=== PATIENT | female | born 1980 | race Caucasian/White ===

== ENCOUNTER 2017-12-10 13:13 | Outpatient (CLI) | payer BC ==
[~2017-12-10] VITALS: Ht 160 cm; Wt 87.5 kg
[~2017-12-10 13:13] MED LIST: ACHD5005 PO; BCP; DCS100C PO; FRS325T PO; IBP600T1 PO; Ibuprofen PO; ONDN4T PO; PREN1TAB39 PO
[2017-12-10] MEDS ORDERED: DESV50TA PO (13:41)
[2017-12-10] MEDS ORDERED: LOSA25TA2 PO (13:41)
[2017-12-16] MEDS ORDERED: PHEN37.53 PO (15:56)
== END 2017-12-10 13:43 ==
LOC: PREOP 13:13
PROVIDERS: ATTEND Surgery
DX: Z01.818 Encounter for other preprocedural examination (principal); R10.13 Epigastric pain

== ENCOUNTER 2017-12-16 11:24 | Day surgery (SDC) | payer BC ==
[~2017-12-16] VITALS: Ht 160 cm; Wt 87.5 kg
[~2017-12-16 11:24] MED LIST changes: +DESV50TA PO; +LOSA25TA2 PO
--- OUTSIDE RECORDS SUMMARY | 2017-12-16 11:28 | XMS REPORT | Continuity of Care Document ---
Author Author [facility] Organization [facility] Address Unknown Phone Unavailable Allergies Active Description Code Type Severity Reaction Onset Reported/Identified Relationship to Patient Clinical Status Yes milk [id number] Drug Allergy Unknown N/A 03/14/2006 Yes promethazine [id number] Drug Allergy Unknown N/A 01/11/2010 Medications There is no data. Problems Date Dx Coded Attending Type Code Diagnosis Diagnosed By 03/02/2014 EVIN WALLACE DO Ot 660.41 SHOULDER DYSTOCIA-DELIV 03/02/2014 EVIN WALLACE DO Ot V06.1 [id number], COMBINED [ 03/02/2014 EVIN WALLACE DO Ot V27.0 DELIVER-SINGLE LIVEBORN 12/10/2017 HAILEY WILKINS MD Ot R10.13 EPIGASTRIC PAIN 12/10/2017 HAILEY WILKINS MD Ot Z01.818 ENCOUNTER FOR OTHER PREPROCEDURAL EXAMIN 12/11/2017 HAILEY WILKINS MD, Ot R10.13 EPIGASTRIC PAIN 12/11/2017 HAILEY WILKINS MD, Ot Z01.818 ENCOUNTER FOR OTHER PREPROCEDURAL EXAMIN Procedures Code Description Performed By Performed On 73.6 EPISIOTOMY 02/28/2014 Results There is no data. Encounters ACCT No. Visit Date/Time Discharge Status Pt. Type Provider Facility Loc./Unit Complaint [id number] 12/10/2017 13:13:00 12/10/2017 13:43:00 DIS Outpatient HAILEY WILKINS MD [facility] PREOP COLONOSCOPY/EGD [id number] 02/28/2014 06:49:00 03/02/2014 12:40:00 DIS Inpatient EVIN WALLACE DO [facility] LDRP INDCUTION [id number] 03/29/2013 18:41:00 03/29/2013 23:59:59 CLS Outpatient [id number] 12/16/2017 13:15:00 RUBEN WILKINS MD, HAI[facility] ENDO ABD PAIN/EPIGASTRIC PAIN [id number] 01/07/2016 10:02:00 Document Registration
--- NOTE | 2017-12-16 11:40 | Conscious Sedation/ASA ---
Conscious Sedation Pre-Proced Time Reviewed: 11:00 ASA Class: 2 Airway Mallampati Classification: ([place] appropriate class) I. II. III, IV Lungs Heart ASA score ASA 1: a normal healthy patient ASA 2: a patient with a mild systemic disease (mid diabetes, controlled hypertension, obesity ASA 3: a patient with a severe systemic disease that limits activity (angina , COPD, prior Myocardial infarction) ASA 4: a patient with an incapacitating disease that is a constant threat to life (CHF, renal failure) ASA 5: a moribund patient not expected to survive 24 hrs. (ruptured aneurysm) ASA 6: a declared brain patient whose organs are being harvested. For emergent operations, add the letter E after the classification Grade 2 Sedation Plan: Analgesia, Amnesia, Plan communicated to team members, Discussed options with patient/fam, Discussed risks with patient/fam Note The patient is an appropriate candidate to undergo the planned procedure, sedation, and anesthesia. The patient immediately re-assessed prior to indication. HAILEY WILKINS MD December 16, 2017 11:40 am
[2017-12-16] MEDS ORDERED: NS IV 500 ML 500 ML IV PRN (11:41)
--- NOTE | 2017-12-16 11:41 | Progress Note-Pre Operative ---
Pre-Operative Progress Note H&P Reviewed The H&P was reviewed, patient examined and no changes noted. Date Seen by Provider: December 16, 2017 Time Seen by Provider: 11:00 Date H&P Reviewed: December 16, 2017 Time H&P Reviewed: 11:00 Pre-Operative Diagnosis: GERD, change bowel habits HAILEY WILKINS MD December 16, 2017 11:41 am
[2017-12-16] MEDS ORDERED: morphine INJ 10 MG/ML 1ML (SYR OR VIAL) IV PRN (11:45)
[2017-12-16] MEDS ORDERED: NS IV 500 ML 500 ML ONE (11:45)
[2017-12-16] MEDS ORDERED: HYDROcodone/APAP 5 MG/325 MG (LORTAB) TAB PO PRN (11:45)
[2017-12-16] MEDS ORDERED: ONDANSETRON 4 MG/2 ML (SDV) Z0FRAN IV PRN (11:45)
[2017-12-16] MEDS ORDERED: ACETAMINOPHEN 325 MG TABLET/CAPLET (TYLENOL) PO PRN (11:45)
[2017-12-16 12:16] VITALS: BP 140/81
[2017-12-16] MEDS ORDERED: HURRICAINE EXT TUBE (BENZOCAINE) XX ONE (12:45)
[2017-12-16] MEDS ORDERED: fentaNYL INJECTION 100 MCG/2 ML AMP ONE ×3 (14:41)
[2017-12-16] MEDS ORDERED: LIDOCAINE JELLY 2% (XYLOCAINE) 5 ML TUBE ONE (14:41)
[2017-12-16] MEDS ORDERED: HURRICAINE EXT TUBE (BENZOCAINE) ONE (14:42)
[2017-12-16] MEDS ORDERED: MIDAZOLAM 2 MG/2 ML (VERSED) VIAL ONE ×5 (14:42)
[2017-12-16] MEDS: fentaNYL INJECTION 100 MCG/2 ML AMP IVP PRN ×4 (14:55→15:18)
[2017-12-16] MEDS: MIDAZOLAM 2 MG/2 ML (VERSED) VIAL IVP PRN ×5 (15:00→15:20)
[2017-12-16] MEDS ORDERED: LIDOCAINE JELLY 2% (XYLOCAINE) 30 ML TUBE TOP ONE (15:45)
--- NOTE | 2017-12-16 15:55 | Progress Note-Post Operative ---
Post-Operative Progess Note Surgeon (s)/Superintendent Of Schools (s) Surgeon HAILEY WILKINS MD Superintendent Of Schools: none Pre-Operative Diagnosis GERD, change bowel habits Post-Operative Diagnosis reflux esophagitis(class B), intact wrap and no recurrent HH, mild gastritis. chronic stage 1 ext and int hemorrhoids. Procedure & Operative Findings Date of Procedure 12/16/17 Procedure Performed/Findings EGD with bx. Colonoscopy. Anesthesia Type CS Estimated Blood Loss Estimated blood loss (mL): minimal Specimens/Packing Specimens Removed GE jxn, antrum HAILEY WILKINS MD December 16, 2017 3:55 pm
[2017-12-16] MEDS ORDERED: PHEN37.53 PO (15:56)
--- NOTE | 2017-12-16 15:57 | Discharge Inst-Surgical ---
D/C Lap Instructions-KIDO New, Converted, or Re-Newed RX: RX on Chart Follow Up Appt in 4 weeks Activity as tolerated High Fiber Diet 25g or more per day Avoid Alcohol, Caffeine, Spicy [place] and Acid foods. Drink 64 fluid oz or more of fluids per day. Symptoms to Report: Fever over 101 degree F, Nausea/Vomiting If any problems/questions: Contact your physician or go to Emergency Room HAILEY WILKINS MD December 16, 2017 3:57 pm
[2017-12-16 16:10] VITALS: BP 134/79
[2017-12-16 16:20] VITALS: BP 134/79
--- NOTE | 2017-12-17 03:44 | OPERATIVE REPORT ---
DATE OF SERVICE: 12/16/2017 ATTENDING DIRECTOR CORPORATE COMMUNICATIONS: NORAH Villegas. PREOPERATIVE DIAGNOSES: Recurrent gastroesophageal reflux disease, crampy lower abdominal pain. POSTOPERATIVE DIAGNOSES: Reflux esophagitis class B, no recurrent hiatal hernia, mild gastritis, colon and rectum were normal. PROCEDURES: EGD with biopsy and colonoscopy. SURGEON: Hailey Wilkins MD. ANESTHESIA: Conscious sedation. ESTIMATED BLOOD LOSS: Minimal. FINDINGS: 1. EGD: Reflux esophagitis class B no recurrent hiatal hernia, mild gastritis. Pylorus and duodenum appeared normal with no distal obstructions. 2. Colonoscopy: Mild chronic stage I external and internal hemorrhoids. The remainder of the rectum and colon were normal. DISPOSITION: The patient tolerated the procedure well. INDICATIONS: The patient is a 37-year-old female, who has had gastrointestinal issues since childhood with intermittent episodes of constipation and diarrhea and lower quadrant abdominal pain. We felt that this was most likely secondary to some form of irritable bowel syndrome. We did recommend conservative management with high fiber diet and states that this has made her symptoms more tolerable. She also does report a history of endometriosis as well as recurrent ovarian cysts in the past which have caused chronic lower abdominal pain as well. She reports that she has had epigastric burning sensation as well as crampy pain and bloating after eating. She did have a significant reflux and a hiatal hernia and underwent a hiatal hernia repair and Rosa M fundoplication in 1999 in [place], [place]. She reports for the most part she does not drink any excessive amounts of caffeinated beverages, spicy, greasy and acidic foods. She reports that her symptoms have worsened over time and she has also struggled with weight loss in the past several years despite adequate diet and exercise. She does report a remote family history of colon cancer with her maternal grandmother having the disease and also her father having Hirschsprung disease; however, she does not report any symptoms consistent with Hirschsprung disease. DESCRIPTION OF PROCEDURE: The patient was brought to the endoscopy suite, laid in the left lateral decubitus position with head slightly elevated. After adequate IV pain and sedating medications and conscious sedation anesthesia, the mouthpiece was applied. The endoscope was placed in the mouth visualizing the pharynx and hypopharyngeal region. Vocal cords, epiglottis and vallecula identified and appeared to be normal. The endoscope was gently intubated in the esophageal opening and esophagus insufflated. Endoscope was then advanced to the first, second and third portions of the esophagus at the level of the GE junction, a reflux esophagitis class B identified. There were no ulcers or strictures identified in this region. A biopsy was taken with forceps with visualization good hemostasis. The endoscope was then easily advanced in the stomach and endoscope retroflexed visualizing an intact previous wrap and no recurrent hiatal hernia. There was a mild severity gastritis. No formal ulcerations, polyps or any neoplasms. A biopsy was taken of the stomach antrum with visualization of good hemostasis. The endoscope was then advanced through the pylorus and the first and second portions of the duodenum, which appeared normal and no distal obstructions. The endoscope was then slowly withdrawn while taking a second look and suctioning of residual air with no additional findings. The patient tolerated the procedure well. We will recommend continued necessary lifestyle and diet accommodation including small and more frequent meals, avoidance of eating at night as well as head elevation while lying supine. We will also proceed with the necessary modalities of weight loss which ever type works for her as long as she is consistent with that including high protein diet as well as regularly scheduled intense exercise regimen that encompasses at least 150 minutes a week. Under the same conscious sedation anesthesia, we then proceeded with colonoscopy portion of the procedure. A digital rectal examination was performed which revealed mild chronic stage I external and internal hemorrhoids, not actively edematous nor inflamed and no bleeding. Normal sphincter tone was felt and there were no palpable masses. The endoscope was then intubated to the anus and the rectum gently insufflated. The endoscope was then advanced to the valves of Hale of the rectum with no polyps or any neoplasms identified. The endoscope was then advanced through the sigmoid colon where no diverticulosis identified. The endoscope was then advanced through the remainder of the descending, transverse and ascending colon to the cecum. These segments were normal. There were no mucosal inflammatory changes or any polyps or any neoplasms identified. The endoscope was then slowly withdrawn while taking a second look and suctioning residual air with no additional findings. The patient tolerated the procedure well. We will continue with medical management with recommendation of a high fiber diet with at least 30 grams of fiber per day as well as at least 64 fluid ounces of water daily to promote soft stools on a daily basis. She does not need another colonoscopy until around age 51; however, sooner if any problems arise. Job ID: [id number] DocumentID: [id number] Dictated Date: 12/16/2017 15:37:55 Mortgage Loan Computation Clerk Date: 12/17/2017 03:43:57 Dictated By: HAILEY WILKINS MD
== END 2017-12-16 16:25 | disposition home or self-care (01) ==
LOC: ENDO 11:24
PROVIDERS: ATTEND Surgery
DX: K21.0 Gastro-esophageal reflux disease with esophagitis (principal); K29.60 Other gastritis without bleeding; Z80.0 Family history of malignant neoplasm of digestive organs
CPT/HCPCS: 88305; 88342

== ENCOUNTER 2018-03-01 11:00 | Outpatient (CLI) | payer BC ==
[~2018-03-01] VITALS: Ht 160 cm; Wt 87.5 kg
[~2018-03-01 11:00] MED LIST changes: +PHEN37.53 PO
[2018-03-01] MEDS ORDERED: [UNRECOGNIZED DRUG - CODE] PO (11:04)
[2018-03-01] MEDS ORDERED: LOSA50TA36 PO (11:04)
[2018-03-05] MEDS ORDERED: IBUP-844 PO (09:34)
[2018-03-05] MEDS ORDERED: ACHD5005 PO (09:34)
== END 2018-03-01 11:25 ==
LOC: PREOP 11:00
PROVIDERS: ATTEND Obstetrics & Gynecology
DX: Z01.818 Encounter for other preprocedural examination (principal)

== ENCOUNTER → 2018-07-20 | Outpatient (CLI) | payer BC ==
[~2018-07-20] VITALS: Ht 160 cm; Wt 87.5 kg
[~2018-07-20] MED LIST changes: +IBUP-844 PO; +LEUPROLIDE 11.25 MG IM SCH; +LOSA50TA7 PO; +[UNRECOGNIZED DRUG - CODE] PO
[2018-07-20 10:00] VITALS: BP 128/90
== END ==
LOC: SDC 09:51
PROVIDERS: ATTEND Obstetrics & Gynecology
DX: N80.9 Endometriosis, unspecified (principal)
CPT/HCPCS: 96372

== ENCOUNTER → 2018-10-19 | Outpatient (CLI) | payer BC ==
[~2018-10-19] VITALS: Ht 160 cm; Wt 87.5 kg
[~2018-10-19] MED LIST changes: +LOSA50TA63 PO; -LOSA50TA7 PO
[2018-10-19 13:35] VITALS: BP 123/68
--- NOTE | 2018-10-20 20:13 | Physician Query-Final Dx ---
CHAZ AHUMADA 10/20/18 2013: Clinic Account Progress/Dx Physician Query: Please give diagnosis Date of Service Oct 19, 2018 at 12:57 EVIN WALLACE DO 11/11/182141: Clinic Account Progress/Dx DIAGNOSIS: Diagnosis endometriosis CHAZ AHUMADA Oct 20, 2018 20:13 EVIN WALLACE DO Nov 11, 2018 21:42
== END ==
LOC: SDC 12:57
PROVIDERS: ATTEND Obstetrics & Gynecology
DX: N80.9 Endometriosis, unspecified (principal)
CPT/HCPCS: 96372

== ENCOUNTER → 2019-01-12 | Outpatient (CLI) | payer BC ==
[~2019-01-12] VITALS: Ht 160 cm; Wt 87.5 kg
[~2019-01-12] MED LIST changes: -LEUPROLIDE 11.25 MG IM SCH; +LEUPROLIDE IM ONE
[2019-01-12 12:19] VITALS: BP 108/66
== END ==
LOC: SDC 01-11 12:25
PROVIDERS: ATTEND Obstetrics & Gynecology
DX: N80.9 Endometriosis, unspecified (principal)
CPT/HCPCS: 96372

== ENCOUNTER → 2019-04-13 | Outpatient (CLI) | payer BC ==
[~2019-04-13] VITALS: Ht 160 cm; Wt 77.7 kg
[~2019-04-13] MED LIST changes: +PED IM SCH; +[UNRECOGNIZED DRUG - OTHER] IM SCH
[2019-04-13 13:35] VITALS: BP 118/77
--- NOTE | 2019-05-09 15:04 | Physician Query-Final Dx ---
Final Diagnosis Give Final Diagnosis Please give Final Diagnosis GILDA KEY May 09, 2019 15:04
== END | disposition home or self-care (01) ==
LOC: SDC 12:56
PROVIDERS: ATTEND Obstetrics & Gynecology
DX: N80.9 Endometriosis, unspecified (principal)
CPT/HCPCS: 96372

== ENCOUNTER → 2019-07-13 | Outpatient (CLI) | payer BC ==
[~2019-07-13] VITALS: Ht 160 cm; Wt 80.7 kg
[~2019-07-13] MED LIST changes: -PED IM SCH; -[UNRECOGNIZED DRUG - OTHER] IM SCH
[2019-07-13 14:25] VITALS: BP 125/80
[2019-07-13 14:46] VITALS: BP 125/80
== END ==
LOC: SDC 13:51
PROVIDERS: ATTEND Obstetrics & Gynecology
DX: Z01.89 Encounter for other specified special examinations (principal)
CPT/HCPCS: 96372

== ENCOUNTER → 2019-07-29 | Outpatient (CLI) | payer BC ==
[~2019-07-29] MED LIST changes: -LEUPROLIDE IM ONE
--- NOTE | 2019-07-29 08:31 | Diagnostic Imaging Report ---
PROCEDURE: US right lower extremity venous. TECHNIQUE: Multiple real-time grayscale images were obtained over the right lower extremity in various projections. Additional spectral analysis and color Doppler duplex images were also obtained. INDICATION: Right leg pain and swelling. There is no evidence of right lower extremity DVT. Right lower extremity deep venous system shows normal compressibility with normal response to augmentation and Valsalva. No fluid collection or mass is seen. IMPRESSION: No evidence of right lower extremity DVT. Dictated by: Dictated on workstation # [id number]
== END ==
LOC: RAD 07:45
PROVIDERS: ATTEND Nurse Practitioner Family
DX: M79.661 Pain in right lower leg (principal); M79.89 Other specified soft tissue disorders

== ENCOUNTER → 2019-08-09 | Outpatient (CLI) | payer BC ==
--- NOTE | 2019-08-09 14:36 | Diagnostic Imaging Report ---
INDICATION: Hypertension and calf pain. FINDINGS: Segmental pressures were obtained at the ankle and brachial arteries. The ankle-brachial index on the right is 1.22 and on the left 1.19. IMPRESSION: Normal bilateral ankle brachial indices. Dictated by: Dictated on workstation # [id number]
== END ==
LOC: RAD 08:40
PROVIDERS: ATTEND Nurse Practitioner Family
DX: I10 Essential (primary) hypertension (principal); M79.661 Pain in right lower leg; M79.662 Pain in left lower leg
CPT/HCPCS: 93922

== ENCOUNTER → 2019-10-12 | Outpatient (CLI) | payer BC ==
[~2019-10-12] MED LIST changes: +LEUPROLIDE IM NR; +LEUPROLIDE IM ONE
[2019-10-12 13:35] VITALS: BP 129/92
== END ==
LOC: SDC 13:00
PROVIDERS: ATTEND Obstetrics & Gynecology
DX: N80.9 Endometriosis, unspecified (principal)
CPT/HCPCS: 96372

== ENCOUNTER → 2019-12-08 | Outpatient (CLI) | payer BC ==
[~2019-12-08] VITALS: Ht 162.6 cm; Wt 80.7 kg
[~2019-12-08] MED LIST changes: -LEUPROLIDE IM NR; -LEUPROLIDE IM ONE; +LEUPROLIDE IM SCH
[2019-12-08 14:40] VITALS: BP 123/88
[2019-12-09 13:03] VITALS: BP 132/82
== END ==
LOC: SDC 13:59
PROVIDERS: ATTEND Obstetrics & Gynecology
DX: N80.9 Endometriosis, unspecified (principal)

== ENCOUNTER 2020-03-07 13:51 | Outpatient (CLI) | payer BC ==
[~2020-03-07] VITALS: Ht 162.6 cm; Wt 80.7 kg
[~2020-03-07 13:51] MED LIST changes: -LEUPROLIDE IM SCH
[2020-03-07] MEDS ORDERED: BUPR-42 PO (14:08)
[2020-03-07] MEDS ORDERED: HYDR25TA4 PO (14:08)
[2020-03-07] MEDS ORDERED: LEUPROLIDE IM SCH (14:15)
[2020-03-07 14:22] VITALS: BP 134/83
[2020-03-07] MEDS ORDERED: LEUP11.25 IM (14:53)
== END 2020-03-07 14:22 | disposition home or self-care (01) ==
LOC: SDC 13:51
PROVIDERS: ATTEND Obstetrics & Gynecology
DX: Z01.89 Encounter for other specified special examinations (principal)
CPT/HCPCS: 96372

== ENCOUNTER → 2020-09-07 | Outpatient (REF) ==
[~2020-09-07] MED LIST changes: +BUPR-42 PO; +HYDR25TA4 PO; +LEUP11.25 IM
--- NOTE | 2020-09-07 12:28 | Diagnostic Imaging Report ---
INDICATION: Pain status post injury COMPARISON: None FINDINGS: Frontal, lateral, and odontoid views of the cervical spine were submitted. The cervical spine is visualized up to the C7/T1 level on the lateral projection. Evaluation of static alignment shows reversal of normal lordotic curvature. Findings may relate to patient positioning, as well as spasm. There is no significant larissa- or retrolisthesis. There is no evidence of jumped facets. There is no evidence of fracture or bone destruction. No prevertebral soft tissue swelling is seen. No significant degenerative changes are noted. The open-mouth view demonstrates normal C1/C2 alignment. IMPRESSION: 1. No acute fracture or dislocation of the cervical spine. Dictated by: Dictated on workstation # [id number]
== END ==
LOC: OCC 11:10
PROVIDERS: ATTEND Nurse Practitioner Family
DX: G89.11 Acute pain due to trauma (principal)
CPT/HCPCS: 72040

== ENCOUNTER → 2021-03-25 | Outpatient (CLI) | payer BC ==
[~2021-03-25] VITALS: Ht 160 cm; Wt 81.8 kg
[~2021-03-25] MED LIST changes: +ACETAMINOPHEN 500 MG TAB (TYLENOL) PO PRN; +AZIT250T12 PO; +CASIRIVIMAB/IMDEVIMAB 1,200 MG in NS (IVPB) 250 ML IV ONE; +EPINEPHrine INJECTION 1 MG/ML AMP IM PRN; +ONDANSETRON 4 MG/2 ML (SDV) Z0FRAN IV PRN; -PHEN37.53 PO; +PHEN37.58 PO; +diphenhydrAMINE 50 MG/ML INJ (BENADRYL) IV PRN
[2021-03-25 12:36] VITALS: BP 119/81
[2021-03-25 13:58] VITALS: BP 132/75
== END ==
LOC: INFUSION 12:23
PROVIDERS: ATTEND Nurse Practitioner Family
DX: Z23 Encounter for immunization (principal); U07.1 COVID-19

== ENCOUNTER 2021-03-27 13:37 | Emergency (ER) | payer BC ==
[~2021-03-27] VITALS: Ht 160 cm; Wt 81.8 kg
[~2021-03-27 13:37] MED LIST changes: -ACETAMINOPHEN 500 MG TAB (TYLENOL) PO PRN; -AZIT250T12 PO; -CASIRIVIMAB/IMDEVIMAB 1,200 MG in NS (IVPB) 250 ML IV ONE; -EPINEPHrine INJECTION 1 MG/ML AMP IM PRN; -ONDANSETRON 4 MG/2 ML (SDV) Z0FRAN IV PRN; -diphenhydrAMINE 50 MG/ML INJ (BENADRYL) IV PRN
[2021-03-27] MEDS ORDERED: NS IV 1000 ML 1,000 ML ONE (15:36)
--- NOTE | 2021-03-27 15:36 | ED General ---
General Stated Complaint: WEAKNESS,TIRED, COVID POSITIVE Source of Information: Patient Exam Limitations: No Limitations (LORIE MAR MD) History of Present Illness Date Seen by Provider: Mar 27, 2021 Time Seen by Provider: 15:36 Initial Comments 40-year-old female presents to the emergency room 10 days out of a diagnosis of Covid. Patient complains of just muscle aches generalized weakness and fatigue. She is not really short of breath she still has a slight cough. She did receive Regeneron infusion a couple of days ago. She has had persistent diarrhea no urinary complaints. She is very fatigued. No chest pain. No upper respiratory congestion. No rashes joint pain or swelling. All other review of systems reviewed and negative except as stated above. Timing/Duration: 1 Week Severity: Moderate Associated Systoms: Malaise, Weakness (LORIE MAR MD) Allergies and Home Medications Allergies Coded Allergies: milk (Verified Allergy, Unknown, 03/01/18) promethazine (Verified Allergy, Unknown, 03/01/18) Home Medications Bupropion HCl 150 Mg Tab.er.24h, 150 MG PO DAILY, (Reported) Hydrochlorothiazide 25 Mg Tablet, 25 MG PO DAILY, (Reported) Leuprolide Acetate 11.25 Mg Syringekit, 11.25 MG IM UD, (Reported) LUPRON 11.25 MG IM EVERY 3 MONTHS Losartan Potassium 50 Mg Tablet, 50 MG PO HS, (Reported) Patient Home Medication List Home Medication List Reviewed: Yes (LORIE MAR MD) Review of Systems Review of Systems Constitutional: see HPI EENTM: no symptoms reported Respiratory: cough Cardiovascular: no symptoms reported Gastrointestinal: diarrhea Genitourinary: no symptoms reported : No Musculoskeletal: muscle pain, muscle cramps Skin: no symptoms reported Psychiatric/Neurological: No Symptoms Reported (LORIE MAR MD) All Other Systems Reviewed Negative Unless Noted: Yes (LORIE MAR MD) Past Bcfekmi-Hsncpj-Szguon Hx Immunizations Up To Date Tetanus Booster (TDap): Less than 5yrs PED Vaccines UTD: Yes (LORIE MAR MD) Seasonal Allergies Seasonal Allergies: No (LORIE MAR MD) Past Medical History Gallbladder Hypertension Reproductive Disorders: Yes (CYSTOCELE) Female Reproductive Disorders: Endometriosis, Ovarian Cyst Sexually Transmitted Disease: No HIV/AIDS: No Gastroesophageal Reflux Loss of Vision: Bilateral Hearing Impairment: Denies Anxiety Adverse Reaction/Blood Tranf: No (N/A) (LORIE MAR MD) Family Medical History Family history: Allergy G8 BROTHER, Onset:Childhood (psuedocholinesterase) Family history: Gastrointestinal disease 19 FATHER, Onset: (Hirschprung disease ) Hereditary disease 19 MOTHER, Onset:40's - 50 (High blood pressure) Seizure disorder G8 BROTHER, Onset:Childhood No Family History of: Abdominal aortic aneurysm [place]'s disease Alcoholism Aphasia Cancer Cancer of colon Cataract Chest pain Congenital heart disease Congestive heart failure Cystic fibrosis Dementia Dysphagia Family history: Alzheimer's disease Family history: Arthritis Family history: Asthma Family history: Breast disease Family history: Cardiovascular disease Family history: Coronary thrombosis Family history: Diabetes mellitus Family history: Glaucoma Family history: Hypertension Family history: Osteoporosis Family history: Thyroid disorder Headache Hearing loss Heart disease History of - anemia History of - disorder History of - respiratory disease History of drug abuse Human immunodeficiency virus (HIV) seropositivity Hypercholesterolemia Infertile Kidney disease Malignant neoplasm of lung Myocardial infarction Parkinson's disease Prostate cancer Psychotic disorder Stroke Tuberculosis Visual impairment Physical Exam Vital Signs Vital Signs - First Documented 03/27/21 03/27/21 14:30 15:43 Temp 35.9 Pulse 99 Resp 20 B/P (MAP) 130/82 (98) Pulse Ox 97 O2 Delivery Room Air (YING HEADLEY APRN) Vital Signs Capillary Refill : (LORIE MAR MD) Height, Weight, BMI Height: 5'3.00" Weight: 193lbs. 0.0oz. 87.700418xn; 34.2 BMI Method:Estimated General Appearance: No Apparent Distress, WD/WN, Anxious Eyes: Bilateral Eye Normal Inspection, Bilateral Eye PERRL, Bilateral Eye EOMI HEENT: PERRL/EOMI Neck: Normal Inspection Respiratory: Lungs Clear, Normal Breath Sounds, No Accessory Muscle Use, No Respiratory Distress Cardiovascular: Regular Rate, Rhythm Gastrointestinal: Non Tender, Soft Extremity: Normal Capillary Refill, Normal Inspection, Normal Range of Motion, Non Tender, No Calf Tenderness Neurologic/Psychiatric: Alert, Oriented x3, No Motor/Sensory Deficits, Normal Mood/Affect Skin: Normal Color, Warm/Dry (LORIE MAR MD) Progress/Results/Core Measures Suspected Sepsis SIRS Temperature: Pulse: Respiratory Rate: Laboratory Tests 03/27/21 15:35: White Blood Count 6.0 Blood Pressure / Mean: Laboratory Tests 03/27/21 15:35: Creatinine 0.77, Platelet Count 326 (LORIE MAR MD) Results/Orders Lab Results Laboratory Tests Test 03/27/21 15:35 03/27/21 18:17 Range/Units White Blood Count 6.0 4.3-11.0 10^3/uL Red Blood Count 5.51 H 3.80-5.11 10^6/uL Hemoglobin 16.5 H 11.5-16.0 g/dL Hematocrit 49 35-52 % Mean Corpuscular Volume 89 80-99 fL Mean Corpuscular Hemoglobin 30 25-34 pg Mean Corpuscular Hemoglobin Concent 34 32-36 g/dL Red Cell Distribution Width 12.1 10.0-14.5 % Platelet Count 326 130-400 10^3/uL Mean Platelet Volume 9.6 9.0-12.2 fL Immature Granulocyte % (Auto) 1 % Neutrophils (%) (Auto) 57 42-75 % Lymphocytes (%) (Auto) 30 12-44 % Monocytes (%) (Auto) 13 H 0-12 % Eosinophils (%) (Auto) 0 0-10 % Basophils (%) (Auto) 0 0-10 % Neutrophils # (Auto) 3.4 1.8-7.8 10^3/uL Lymphocytes # (Auto) 1.8 1.0-4.0 10^3/uL Monocytes # (Auto) 0.8 0.0-1.0 10^3/uL Eosinophils # (Auto) 0.0 0.0-0.3 10^3/uL Basophils # (Auto) 0.0 0.0-0.1 10^3/uL Immature Granulocyte # (Auto) 0.0 0.0-0.1 10^3/uL Sodium Level 137 135-145 MMOL/L Potassium Level 2.8 L 3.6-5.0 MMOL/L Chloride Level 99 98-107 MMOL/L Carbon Dioxide Level 26 21-32 MMOL/L Anion Gap 12 5-14 MMOL/L Blood Urea Nitrogen 11 7-18 MG/DL Creatinine 0.77 0.60-1.30 MG/DL Estimat Glomerular Filtration Rate 83 BUN/Creatinine Ratio 14 Glucose Level 112 H 70-105 MG/DL Calcium Level 9.3 8.5-10.1 MG/DL (YING HEADLEY APRN) My Orders Orders - YING HEADLEY APRN Basic Metabolic Panel (03/27/21 18:23) (YING HEADLEY APRN) Vital Signs/I&O 03/27/21 03/27/21 14:30 15:43 Temp 35.9 Pulse 99 100 Resp 20 B/P (MAP) 130/82 (98) Pulse Ox 97 97 O2 Delivery Room Air (YING HEADLEY APRN) Vital Signs/I&O Capillary Refill : (LORIE MAR MD) Progress Note : Time: 18:01 Progress Note Patient feels much better after IV fluids. Of note her potassium is low at 2.8. Patient states she has had "a lot of diarrhea". Vital signs have been stable the rest of her labs are reviewed and unremarkable. Patient will be given 10 mEq of IV potassium and 40 oral. She is encouraged to drink electrolyte replacement fluids at home Pedialyte sport or Gatorade. I have recommended she follow-up with Dr. Lau closely she will need repeat labs by Thursday. She is given good return precautions. She verbalized understanding. All questions are sought and answered. Patient stable for discharge. (LORIE MAR MD) Departure Impression Primary Impression: Generalized weakness Additional Impression: Hypokalemia Disposition: HOME, SELF-CARE Condition: Stable Departure-Patient Inst. Decision time for Depature: 18:03 (LORIE MAR MD) Referrals: MICHAEL LAU MD (PCP/Family) Primary Care Physician Patient Instructions: Generalized Weakness (DC), Hypokalemia Add. Discharge Instructions: Drink plenty of fluids to stay well-hydrated. You can drink bbfj-kcx-cplyexg Pedialyte sport or dilute Gatorade for this. Please call Dr. Lau's office tomorrow for a follow-up appointment and repeat labs to recheck your potassium. I have sent a copy of your work-up and chart to her office. Please come back to the emergency room for any worsening weakness especially with nausea vomiting, persistent diarrhea, muscle cramping, high fevers or any other emergent concerning symptoms. Scripts Azithromycin (Azithromycin) 250 Mg Tablet 250 MG PO UD, #6 TAB TAKE 2 TABLETS ON DAY ONE THEN TAKE 1 TABLET DAILY FOR FOUR MORE DAYS Prov: YING HEADLEY APRN 03/27/21 LORIE MAR MD Mar 27, 2021 15:36 YING HEADLEY APRN Mar 27, 2021 18:39
[2021-03-27] MEDS ORDERED: NS IV 1000 ML 1,000 ML IV SCH (15:45)
[2021-03-27 15:54] LABS: BASOPHILS % (AUTO) 0 % (0-10); EOSINOPHILS % (AUTO) 0 % (0-10); HEMATOCRIT 49 % (35-52); HEMOGLOBIN 16.5 g/dL (11.5-16.0); LYMPHOCYTES # (AUTO) 1.8 10^3/uL (1.0-4.0); LYMPHOCYTES % (AUTO) 30 % (12-44); MEAN CORPUSCULAR HEMOGLOBIN 30 pg (25-34); MEAN CORPUSCULAR HGB CONC 34 g/dL (32-36); MEAN CORPUSCULAR VOLUME 89 fL (80-99); MEAN PLATELET VOLUME 9.6 fL (9.0-12.2); MONOCYTES # (AUTO) 0.8 10^3/uL (0.0-1.0); MONOCYTES % (AUTO) 13 % (0-12); NEUTROPHILS # (AUTO) 3.4 10^3/uL (1.8-7.8); NEUTROPHILS % (AUTO) 57 % (42-75); PLATELET COUNT 326 10^3/uL (130-400)
[2021-03-27 16:15] LABS: CALCIUM 9.3 MG/DL (8.5-10.1); CREATININE SERUM 0.77 MG/DL (0.60-1.30); POTASSIUM 2.8 MMOL/L (3.6-5.0)
[2021-03-27] MEDS ORDERED: POTASSIUM CL 10MEQ/50ML IVPB 50 ML IV ONE (18:00)
[2021-03-27] MEDS ORDERED: KCL 20 MEQ TAB (K-DUR) PO ONE (18:00)
[2021-03-27] MEDS ORDERED: NS IV 500 ML 500 ML ONE (18:12)
[2021-03-27] MEDS ORDERED: AZIT250T12 PO (18:39)
[2021-03-27 18:49] LABS: CREATININE SERUM 0.67 MG/DL (0.60-1.30)
[2021-03-27 19:03] LABS: POTASSIUM 2.7 MMOL/L (3.6-5.0)
[2021-03-27 19:05] LABS: CALCIUM 8.3 MG/DL (8.5-10.1)
[2021-03-27 20:53] VITALS: BP 126/85
== END 2021-03-27 20:53 | disposition home or self-care (01) ==
LOC: EDUNIT# 13:37 → ER 13:38
DX: R53.1 Weakness (principal); E87.6 Hypokalemia; I10 Essential (primary) hypertension; Z79.899 Other long term (current) drug therapy
CPT/HCPCS: 36415; 80048; 84132; 85025

== ENCOUNTER → 2021-05-03 | Outpatient (REF) ==
[~2021-05-03] MED LIST changes: +AZIT250T12 PO
--- NOTE | 2021-05-03 10:07 | Diagnostic Imaging Report ---
INDICATION: LEFT SHOULDER PAIN TECHNIQUE: Three views of the left shoulder CORRELATION STUDY: None FINDINGS: The glenohumeral and acromioclavicular alignment are maintained and unremarkable. There is no evidence for acute fracture or dislocation. The visualized soft tissues are unremarkable. IMPRESSION: 1. Negative for acute bony abnormality of the left shoulder. Dictated by: Dictated on workstation # [id number]
== END ==
LOC: OCC 09:39
PROVIDERS: ATTEND Family Medicine
DX: M25.512 Pain in left shoulder (principal)
CPT/HCPCS: 73030

== ENCOUNTER → 2021-05-08 | Outpatient (CLI) | payer BC ==
--- NOTE | 2021-05-09 09:55 | Diagnostic Imaging Report ---
INDICATION: Routine screening. No prior mammograms are available for comparison. This a baseline study. 2-D and 3-D bilateral screening mammography was performed with CAD. Scattered fibroglandular densities are identified bilaterally. No mass or malignant-appearing microcalcifications are seen. Axillae are unremarkable. IMPRESSION: BI-RADS Category 1 No mammographic features suspicious for malignancy are identified. ACR BI-RADS Category 1: Negative. Result letter will be mailed to the patient. Note: At least 10% of breast cancer is not imaged by mammography. Dictated by: Dictated on workstation # [id number]
== END ==
LOC: RAD 14:42
PROVIDERS: ATTEND Obstetrics & Gynecology
DX: Z12.31 Encounter for screening mammogram for malignant neoplasm of breast (principal)
CPT/HCPCS: 77063; 77067

== ENCOUNTER 2021-07-08 14:45 | Outpatient (RCR) | payer OTHER | END 2021-07-08 15:32 | disposition home or self-care (01) | PROVIDERS: ATTEND Family Medicine | DX: M25.512 Pain in left shoulder (principal); M62.838 Other muscle spasm ==

== ENCOUNTER → 2021-10-03 | Outpatient (CLI) | payer BC ==
--- NOTE | 2021-10-03 15:10 | Diagnostic Imaging Report ---
INDICATION: Right nipple pain. COMPARISON: Correlation is made with the prior right mammogram from 05/08/2021. TECHNIQUE: Unilateral right 2D and 3D diagnostic mammography was performed with CAD. FINDINGS: Scattered fibroglandular densities in the right breast are noted. No mass or malignant-appearing microcalcifications are seen. The right axilla is unremarkable. IMPRESSION: No mammographic features suspicious for malignancy are identified. ACR BI-RADS Category 1: Negative. Result letter will be mailed to the patient. Note: At least 10% of breast cancer is not imaged by mammography. Dictated by: Dictated on workstation # [id number]
== END ==
LOC: RAD 14:15
PROVIDERS: ATTEND Obstetrics & Gynecology
DX: N64.4 Mastodynia (principal)
CPT/HCPCS: 77065; G0279

== ENCOUNTER → 2021-12-05 | Outpatient (CLI) | payer BC ==
--- NOTE | 2021-12-05 13:35 | Diagnostic Imaging Report ---
INDICATION: Bilateral hand pain with thumbs locking up. TIME OF EXAM: 11:48 AM 3 views of each hand were obtained. Distal radius and ulna are intact bilaterally. The carpal bones are unremarkable bilaterally. Metacarpals and phalanges are intact. There are no fractures. Alignment is normal. IMPRESSION: Unremarkable bilateral hand radiographs. Dictated by: Dictated on workstation # [id number]
== END ==
LOC: RAD 11:32
PROVIDERS: ATTEND Family Medicine
DX: M79.645 Pain in left finger(s) (principal); M79.644 Pain in right finger(s); M79.642 Pain in left hand; M79.641 Pain in right hand

== ENCOUNTER → 2021-12-13 | Outpatient (CLI) | payer BC ==
--- NOTE | 2021-12-13 10:08 | Diagnostic Imaging Report ---
INDICATION: Right foot and leg pain. COMPARISON: None TECHNIQUE: Duplex, lang-scale and color-flow imaging of the right lower extremity venous system was performed. FINDINGS: The common femoral vein, superficial femoral vein, profunda femoris, and popliteal veins are normal. These vessels show normal compressibility, color flow, and doppler augmentation. The deep calf veins, although not very well seen, demonstrate no distinct intraluminal thrombus. IMPRESSION: Negative venous Doppler of the right lower extremity. Dictated by: Dictated on workstation # [id number]
--- NOTE | 2021-12-13 15:21 | Diagnostic Imaging Report ---
US RIGHT LOW EXT [id number] TECHNIQUE: Grayscale, color Doppler and spectral Doppler imaging of the bilateral lower extremities was performed. 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 The patient indicates pain in leg and foot. COMPARISON: None available FINDINGS: Right lower extremity: Color Doppler imaging shows patency of the common femoral, proximal deep femoral, superficial femoral, popliteal, posterior tibial and dorsalis pedis arteries. Triphasic waveforms are present. There are no elevated peak systolic velocities. JUAN: Not recorded. IMPRESSION: No right lower extremity arterial stenosis or occlusion. Dictated by: Dictated on workstation # [id number]
== END ==
LOC: RAD 09:00
PROVIDERS: ATTEND Family Medicine
DX: Q27.8 Other specified congenital malformations of peripheral vascular system (principal)
CPT/HCPCS: 93926

== ENCOUNTER → 2023-02-24 | Outpatient (CLI) | payer BC ==
--- NOTE | 2023-02-24 14:10 | Diagnostic Imaging Report ---
EXAMINATION: 3D bilateral screening mammogram with CAD. INDICATION: Screening. COMPARISON: This study was compared to the prior exams of 10/03/2021 and 05/08/2021. PERSONAL HISTORY: At this time, there are no current complaints. FINDINGS: There are scattered fibroglandular densities in both breasts which could obscure a lesion. Overall, there does not appear to have been any significant change when compared to the prior exam. No primary or secondary sign of malignancy is noted. IMPRESSION: There is no radiographic evidence for malignancy. ACR BI-RADS Category 1: Negative. Result letter will be mailed to the patient. Note: At least 10% of breast cancer is not imaged by mammography. Dictated by: Dictated on workstation # [id number]
== END ==
LOC: RAD 09:48
PROVIDERS: ATTEND Nurse Practitioner Women's Health
DX: Z12.31 Encounter for screening mammogram for malignant neoplasm of breast (principal)
CPT/HCPCS: 77063; 77067